=== PATIENT | female | born 1960 | race Caucasian/White ===

== ENCOUNTER 2017-03-03 18:58 | Emergency (ER) | payer OTHER ==
[2017-03-03 20:34] VITALS: BP 140/79
[2017-03-03] MEDS ORDERED: Sulfamethox/Trimethoprim DS 800/160* TAB PO ONE (21:18)
--- NOTE | 2017-03-03 21:18 | UC ---
Complaint Female HPI - HPI Summary HPI Summary: 3 DAYS OF DYSURIA, FREQUENCY AND URGENCY. NO FEVER, NAUSEA OR BACK PAIN. HAS BEEN TAKING AZO WITHOUT MUCH RELIEF - History Of Current Complaint Chief Complaint: UCGeneralIllness Stated Complaint: POSS UTI Time Seen by Provider: 03/03/17 21:08 Hx Obtained From: Patient Hx Last Menstrual Period: January 31 Onset/Duration: Gradual Onset, Lasting Days, Still Present Timing: Constant Severity Initially: Moderate Severity Currently: Moderate Pain Intensity: 3 Pain Scale Used: 0-10 Numeric Character: Burning Aggravating Factor(s): Urination Alleviating Factor(s): Nothing Associated Signs And Symptoms: Negative: Fever, Back Pain, Vaginal Bleeding/ Discharge, Nausea, Vomiting(# Of Episodes =), Genital Swelling, Genital Blisters - Allergies/Home Medications Allergies/Adverse Reactions: Allergies Allergy/AdvReac Type Severity Reaction Status Date / Time No Known Allergies Allergy Verified 03/18/13 16:29 Home Medications: Home Medications Progesterone CAP (NF) [Prometrium (NF)] 03/03/17 [History] Pumpkin Seed-Soy Germ [Azo Bladder Control/Go-Le] 03/03/17 [History] Testosterone (Bulk) [Testosterone] 03/03/17 [History] PMH/Surg Hx/FS Hx/Imm Hx Endocrine History Of: Reports: Diabetes - on metformin Denies: Thyroid Disease Cardiovascular History Of: Reports: Hypertension - on meds Denies: Cardiac Disorders Respiratory History Of: Denies: COPD, Asthma GI/ History Of: Denies: Ulcer - Surgical History Surgical History: Yes Surgery Procedure, Year, and Place: gallbadder 5 yrs ago, spleen repaired age 20 - Family History Known Family History: Positive: Cardiac Disease, Hypertension - Social History Alcohol Use: Weekly Substance Use Type: None Smoking Status (MU): Never Smoked Tobacco Review of Systems Constitutional: Negative Respiratory: Negative Cardiovascular: Negative Gastrointestinal: Abdominal Pain Genitourinary: Dysuria, Frequency, Urgency All Other Systems Reviewed And Are Negative: Yes Physical Exam Triage Information Reviewed: Yes Appearance: Well-Appearing, No Pain Distress, Well-Nourished Vital Signs: Initial Vital Signs Temp 98.6 F 03/03/17 20:25 Pulse 57 03/03/17 20:25 Resp 18 03/03/17 20:25 BP 140/79 03/03/17 20:25 Pulse Ox 93 03/03/17 20:25 Vital Signs Reviewed: Yes Eyes: Positive: Conjunctiva Clear ENT: Positive: Hearing grossly normal Neck: Positive: Supple Respiratory: Positive: No respiratory distress, No accessory muscle use Cardiovascular: Positive: Pulses Normal Abdomen Description: Positive: Soft, Other: - SUPRAPUBIC TENDERNESS. Negative: CVA Tenderness (R), CVA Tenderness (L), Distended, Guarding Musculoskeletal: Positive: No Edema Neurological: Positive: Alert Psychological: Positive: Age Appropriate Behavior Skin: Negative: rashes Complaint Female Dx - Course Course Of Treatment: PT URINATED JUST PRIOR TO BEING SEEN AND WAS UNABLE TO PROVIDE A SAMPLE. SENT HOME WITH URINE SPECIMEN CUP AND LAB REQUISITION. WILL TX EMPIRICALLY WITH BACTRIM. PT TO BRING IN A SAMPLE IF SX DO NOT RESOLVE. - Differential Dx/Diagnosis Provider Diagnoses: UTI Discharge - Discharge Plan Condition: Stable Disposition: HOME Prescriptions: Sulfamethox/Trimethoprim DS* [Bactrim DS 800/160 TAB*] 1 tab PO BID #9 tab Patient Education Materials: Urinary Tract Infection in Women (ED) Referrals: Lg GUTIERREZ,Radha Reyes [Medical Doctor] - If Needed Additional Instructions: URINE SAMPLE NOT OBTAINED TODAY. IF YOUR SYMPTOMS DO NOT IMPROVE WITH BACTRIM YOU WILL NEED TO SUBMIT A SAMPLE FOR TESTING. SPECIMEN CUP AND ORDER SENT HOME WITH YOU TODAY. STAY WELL HYDRATED.
== END 2017-03-03 21:31 | disposition home or self-care (01) ==
LOC: UCEAST 18:58
DX: N39.0 Urinary tract infection, site not specified (principal); E11.9 Type 2 diabetes mellitus without complications; I10 Essential (primary) hypertension; Z79.84 Long term (current) use of oral hypoglycemic drugs
CPT/HCPCS: 99212; A9270-GY; G0463

== ENCOUNTER 2017-06-20 17:16 | Emergency (ER) | payer OTHER ==
[2017-06-20 17:29] VITALS: BP 138/85
--- NOTE | 2017-06-20 17:32 | UC ---
Headache HPI - HPI Summary HPI Summary: 56 YEAR OLD FEMALE WITH A HISTORY OF MIGRAINE HEADACHES PRESENTS WITH INTRACTABLE HEADACHE AND FLOATERS. I WILL SEND HER TO THE ER SINCE THE HEADACHE IS NOT GOING AWAY AND SHE HAS VISUAL CHANGES. - History Of Current Complaint Chief Complaint: UCHeadache Stated Complaint: EYE COMPLAINT, HEADACHE Time Seen by Provider: 06/20/17 17:32 Hx Obtained From: Patient Hx Last Menstrual Period: January 31 Onset/Duration: Sudden Onset Initially Headache Was: "Worst Headache Ever" Pain Scale Used: 0-10 Numeric - 8 Timing: Constant Character: Sharp Location of Headache: Diffuse Allevating Factors: Nothing Associated Signs And Symptoms: Positive: Negative - Allergies/Home Medications Allergies/Adverse Reactions: Allergies Allergy/AdvReac Type Severity Reaction Status Date / Time No Known Allergies Allergy Verified 06/20/17 17:29 Home Medications: Home Medications Estradiol [Divigel] 0.5 mg TD 06/20/17 [History] PMH/Surg Hx/FS Hx/Imm Hx Previously Healthy: Yes - Surgical History Surgical History: Yes Surgery Procedure, Year, and Place: gallbadder 5 yrs ago, spleen repaired age 20 - Family History Known Family History: Positive: Cardiac Disease, Hypertension - Social History Alcohol Use: Weekly Substance Use Type: None Smoking Status (MU): Never Smoked Tobacco Review of Systems Constitutional: Negative Skin: Negative Eyes: Blurred Vision ENT: Negative Respiratory: Negative Cardiovascular: Negative Gastrointestinal: Negative Genitourinary: Negative Motor: Negative Neurovascular: Negative Musculoskeletal: Negative Neurological: Headache Psychological: Negative All Other Systems Reviewed And Are Negative: Yes Physical Exam Triage Information Reviewed: Yes Vital Signs: Initial Vital Signs Temp 36.3 C 06/20/17 17:25 Pulse 77 06/20/17 17:25 Resp 18 06/20/17 17:25 BP 138/85 06/20/17 17:25 Pulse Ox 98 06/20/17 17:25 Eye Exam: Normal ENT Exam: Normal Dental Exam: Normal Neck exam: Normal Neck: Positive: 1 Respiratory Exam: Normal Cardiovascular Exam: Normal Abdominal Exam: Normal Musculoskeletal Exam: Normal Neurological Exam: Normal Psychological Exam: Normal Skin Exam: Normal Headache Course/Dx - Differential Dx/Diagnosis Provider Diagnoses: HEADACHE. VISUAL FLOATERS RIGHT EYE Discharge - Discharge Plan Condition: Stable Disposition: HOME Referrals: Lg GUTIERREZ,Radha Reyes [Primary Care Provider] - Additional Instructions: PATIENT WITH HISTORY OF MIGRAINE SUGGESTED TO GO FOR INTRACTABLE HEADACHE AND ASSOCIATED FLOATERS.
== END 2017-06-20 17:41 | disposition home or self-care (01) ==
LOC: UCEAST 17:16
DX: R51 Headache (principal); H43.391 Other vitreous opacities, right eye; Z90.49 Acquired absence of other specified parts of digestive tract
CPT/HCPCS: 99212; G0463

== ENCOUNTER 2017-06-20 18:08 | Emergency (ER) | payer OTHER ==
[2017-06-20] MEDS ORDERED: Metoclopramide IV* 5 MG/ML 2 ML VIAL IV SLOW PU ONE (20:05)
[2017-06-20] MEDS ORDERED: diPHENhydraMINE IV* 50 MG/ML 1 ml VIAL (BENADRYL) SLOW PUSH ONE (20:05)
[2017-06-20 20:29] LABS: Hematocrit 40 % (35-47); Hemoglobin 13.4 g/dl (12.0-16.0); Mean Corpuscular HGB Conc 33 g/dl (31-36); Mean Corpuscular Hemoglobin 30 pg (27-31); Mean Corpuscular Volume 90 fL (80-97); Mean Platelet Volume 8 um3 (7.4-10.4); Red Blood Count 4.48 10^6/ul (4.0-5.4); Red Cell Distribution Width 13 % (10.5-15); White Blood Count 7.4 10^3/ul (3.5-10.8)
--- NOTE | 2017-06-20 20:32 | RAD ---
INDICATION: Headaches COMPARISON: None TECHNIQUE: Noncontrast axial source images were acquired from the skull base to the vertex. FINDINGS: Ventricles/sulci: The ventricles and cisterns are normal in size and configuration for age. Brain parenchyma: There is no focal parenchymal finding, evidence of intracranial mass, or intracranial mass effect. Intracranial hemorrhage:None. Extra-axial spaces: There are no abnormal extra axial fluid collections or evidence of extra-axial mass. Calvarium: There is no calvarial fracture or other calvarial abnormality. Scalp: There is no evidence of scalp or extracalvarial soft tissue abnormality. Paranasal sinuses/mastoid: The paranasal sinuses and mastoid air cells are clear. Other: None. IMPRESSION: NEGATIVE EXAMINATION
[2017-06-20 20:44] LABS: Albumin 4.3 g/dL (3.2-5.2); BUN/Creatinine Ratio 14.4 (8-20); Calcium 9.8 mg/dL (8.6-10.3); EGFR African American 83.6 (>60); Globulin 2.8 g/dL (2-4); Potassium 3.8 mmol/L (3.5-5.0); Total Bilirubin 0.8 mg/dL (0.2-1.0); Total Protein 7.1 g/dL (6.4-8.9)
[2017-06-20] MEDS ORDERED: Ketorolac INJ* 30 MG/ML 1 ML VIAL IV PUSH ONE (21:11)
[2017-06-20 21:52] VITALS: BP 130/83
--- NOTE | 2017-07-04 15:42 | ED ---
Virgil Johnson Kyle, scribed for Aditya Valdez MD on 06/20/17 at 2003 . Headache - HPI Summary HPI Summary: This is a 56 yo female presents to the ED w/ c/o Headache. She reports that she was initially seen at [facility] but was referred here after noting a significant headache two days ago which eventually resolved with Excedrin. Yesterday following cross fit around 1929, had a visual disturbance that has been intermittent since with a recurrent gradual onset headache. She describes the disturbance as a flashing light. She does not still see it when closing the right eye. The headache is currently a 6/10. No fevers, tingling, numbness or neck pain. She also reports a sore throat which is what originally took her to UrgentCare today. She does have some pain with swolling, but has been able to swallow. She has been utilizing the nakul pot at home with minimal relief. She has had her tonsils surgically removed. She reports that her last menses was about 9 months ago, but has had some spotting. She notes some sweats but believes this is hot flashes. - History Of Current Complaint Chief Complaint: EDHeadache Stated Complaint: SORE THROAT/SEVERE HEADACHE Time Seen by Provider: 06/20/17 19:38 Hx Obtained From: Patient Last Known Well Date: 192806/19/2017 Hx Last Menstrual Period: January 31 Onset/Duration: Gradual Onset Initially Headache Was: Severe Currently Pain Is: Current Pain Scale(0-10)= - 6 Timing: Intermittent, Lasting: Character: Throbbing Location of Headache: Diffuse Aggravating Factor: Nothing Allevating Factors: Other (Noted In Comments) - Excederin - Allergies/Home Medications Allergies/Adverse Reactions: Allergies Allergy/AdvReac Type Severity Reaction Status Date / Time No Known Allergies Allergy Verified 06/20/17 17:29 PMH/Surg Hx/FS Hx/Imm Hx Endocrine/Hematology History: Reports: Hx Diabetes - on metformin Denies: Hx Thyroid Disease Cardiovascular History: Denies: Hx Hypertension Respiratory History: Denies: Hx Asthma, Hx Chronic Obstructive Pulmonary Disease (COPD) GI History: Denies: Hx Ulcer - Surgical History Surgery Procedure, Year, and Place: gallbadder 5 yrs ago, spleen repaired age 20 Infectious Disease History: Denies: Hx Hepatitis, Hx Human Immunodeficiency Virus (HIV), Traveled Outside the [place] in Last 30 Days - Family History Known Family History: Positive: Cardiac Disease, Hypertension - Social History Alcohol Use: Weekly Substance Use Type: Reports: None Smoking Status (MU): Never Smoked Tobacco Review of Systems Positive: Skin Diaphoresis - "hot flashes". Negative: Fever, Chills Positive: Other - Flashing disturbance. Negative: Erythema Negative: Sore Throat Negative: Palpitations, Chest Pain Negative: Shortness Of Breath, Cough Negative: Abdominal Pain, Vomiting, Nausea Negative: dysuria, hematuria Negative: Myalgia, Edema Negative: Rash Neurological: Other - NEGATIVE: dizziness Positive: Headache. Negative: Weakness, Numbness All Other Systems Reviewed And Are Negative: Yes Physical Exam - Summary Physical Exam Summary: Constitutional: Well-developed, Well-nourished, Alert. (-) Distressed Skin: Warm, Dry HENT: Eyes: Conjunctiva normal Neck: Musculoskeletal ROM normal neck. (-) JVD, (-) Stridor, (-) Tracheal deviation Cardio: Rhythm regular, rate normal, Heart sounds normal; Intact distal pulses; The pedal pulses are 2+ and symmetric. Radial pulses are 2+ and symmetric. (-) Murmur Pulmonary/Chest wall: Effort normal. (-) Respiratory distress, (-) Wheezes, (-) Rales Abd: Soft. (-) Tenderness, (-) Distension, (-) Guarding, (-) Rebound Musculoskeletal: (-) Edema Lymph: (-) Cervical adenopathy Neuro: Alert, Oriented x3, Strength normal, Cranial nerves II-XII are grossly intact. (-) Dysmetria, (-) Nystagmus, (-) Ataxia by finger to nose testing, (-) Sensory deficit. Psych: Mood and affect Normal Triage Information Reviewed: Yes Vital Signs On Initial Exam: Initial Vitals Temp Pulse Resp BP Pulse Ox 97.9 F 59 16 140/82 100 06/20/17 18:52 06/20/17 18:52 06/20/17 18:52 06/20/17 18:52 06/20/17 18:52 Vital Signs Reviewed: Yes Diagnostics - Vital Signs Vital Signs Temp Pulse Resp BP Pulse Ox 06/20/17 18:52 97.9 F 59 16 140/82 100 - Laboratory Result Diagrams: 06/20/17 20:21 06/20/17 20:21 Lab Statement: Any lab studies that have been ordered have been reviewed, and results considered in the medical decision making process. - CT Brain CT Interpretation: No Acute Changes CT Interpretation Completed By: Radiologist Re-Evaluation - Re-Evaluation First Eval Re-Evaluation Time: 21:14 - MORATAYA resolved. Change: Improved Headache Course/Dx - Course Assessment/Plan: Pt with severe headache on Friday that resolved with Excedrin. She reports gradual onset headache today with visual disturbance. CT today was negative. She has no risk factors for acute CVA. Spoke with Dr. Batista of neurology regarding work up including negative CT and labs. He states he will see patient in the office in 2-3 days for follow up, stable for discharge. - Diagnoses Differential Diagnosis/HQI/PQRI: CVA, Migraine, Sinus Headache, Tension Headache , Viral Syndrome Provider Diagnoses: Ocular migraine - Physician Notifications Discussed Care Of Patient With: Donya Batista Time Discussed With Above Provider: 21:30 Instructed by Provider To: Have Pt Call For Appt. Discharge - Discharge Plan Condition: Stable Disposition: HOME Patient Education Materials: Ocular Migraine (ED) Referrals: Donya Batista MD [Medical Doctor] - Additional Instructions: Follow Up with Dr. Batista of Neurology in 2-3 days. The documentation as recorded by the Virgil delcid Kyle accurately reflects the service I personally performed and the decisions made by , Aditya Valdez MD.
== END 2017-06-20 21:56 | disposition home or self-care (01) ==
LOC: ED 18:08
DX: G43.819 Other migraine, intractable, without status migrainosus (principal); E11.8 Type 2 diabetes mellitus with unspecified complications; Z79.84 Long term (current) use of oral hypoglycemic drugs
CPT/HCPCS: 36415; 70450; 80053; 85027; 87651; 96374; 96375; 99283; J1200; J1885; J2765

== ENCOUNTER 2019-02-27 19:16 | Emergency (ER) | payer SELFPAY ==
[2019-02-27 19:33] VITALS: BP 156/83
--- NOTE | 2019-02-27 19:55 | UC ---
Complaint Female HPI - HPI Summary HPI Summary: This patient is a 58-year-old female who presents to the urgent care with chief complaint of having dysuria, urinary frequency, and urinary urgency. The patient is be have the symptoms since last night. Patient reports that she is feeling as when she usually has the urinary tract infections. She denies any lower abdominal pain, denies any fevers, denies any nausea, denies any vaginal discharge or bleeding. She has no other complaints. - History Of Current Complaint Chief Complaint: UCGeneralIllness Stated Complaint: BURNING URINATION Time Seen by Provider: 02/27/19 19:48 Hx Obtained From: Patient Hx Last Menstrual Period: January 31 Onset/Duration: Gradual Onset Timing: Constant Severity Initially: Mild Severity Currently: Moderate Pain Intensity: 5 - Allergies/Home Medications Allergies/Adverse Reactions: Allergies Allergy/AdvReac Type Severity Reaction Status Date / Time No Known Allergies Allergy Verified 02/27/19 19:33 PMH/Surg Hx/FS Hx/Imm Hx Previously Healthy: Yes - Surgical History Surgical History: Yes Surgery Procedure, Year, and Place: CHOLECYSTECTOMY - 2013. SPLEEN - REPAIRED AT AGE 20. TONSILECTOMY. Lt WRIST & Rt FOOT - GANGLION CYST REMOVED - Family History Known Family History: Positive: Cardiac Disease, Hypertension - Social History Alcohol Use: Weekly Substance Use Type: None Smoking Status (MU): Never Smoked Tobacco Review of Systems All Other Systems Reviewed And Are Negative: Yes Constitutional: Positive: Negative Skin: Positive: Negative Eyes: Positive: Negative ENT: Positive: Negative Respiratory: Positive: Negative Cardiovascular: Positive: Negative Gastrointestinal: Positive: Negative Genitourinary: Positive: Dysuria, Hematuria, Frequency, Urgency Motor: Positive: Negative Neurovascular: Positive: Negative Musculoskeletal: Positive: Negative Neurological: Positive: Negative Psychological: Positive: Negative Is Patient Immunocompromised?: No Physical Exam - Summary Physical Exam Summary: VITAL SIGNS: Reviewed. GENERAL: Patient is a well developed and nourished femle who is lying comfortable in the stretcher. Patient is not in any acute respiratory distress. HEAD AND FACE: No signs of trauma. No ecchymosis, hematomas or skull depressions. No sinus tenderness. EYES: PERRLA, EOMI x 2, No injected conjunctiva, no nystagmus. EARS: Hearing grossly intact. Ear canals and tympanic membranes are within normal limits. MOUTH: Oropharynx within normal limits. NECK: Supple, trachea is midline, no adenopathy, no JVD, no carotid bruit, no c- spine tenderness, neck with full ROM. CHEST: Symmetric, no tenderness at palpation LUNGS: Clear to auscultation bilaterally. No wheezing or crackles. CVS: Regular rate and rhythm, S1 and S2 present, no murmurs or gallops appreciated. ABDOMEN: Soft, non-tender. No signs of distention. No rebound no guarding, and no masses palpated. Bowel sounds are normal. EXTREMITIES: FROM in all major joints, no edema, no cyanosis or clubbing. NEURO: Alert and oriented x 3. No acute neurological deficits. Speech is normal and follows commands. SKIN: Dry and warm Triage Information Reviewed: Yes Vital Signs: Initial Vital Signs Temp 99.9 F 02/27/19 19:27 Pulse 72 02/27/19 19:27 Resp 18 02/27/19 19:27 BP 156/83 02/27/19 19:27 Pulse Ox 99 02/27/19 19:27 Complaint Female Dx - Course Course Of Treatment: Urinalysis positive for UTI. The patient was placed in ciprofloxacin. Patient reports that this antibiotic was well for her UTIs. Patient will follow-up with primary care physician. Patient is hemodynamically stable. - Differential Dx/Diagnosis Provider Diagnosis: UTI (urinary tract infection) Discharge - Sign-Out/Discharge Documenting (check all that apply): Patient Departure All imaging exams completed and their final reports reviewed: No Studies - Discharge Plan Condition: Stable Disposition: HOME Prescriptions: Ciprofloxacin TAB* [Cipro 500 MG TAB*] 500 mg PO BID #6 tab Patient Education Materials: Urinary Tract Infection in Women (ED) Referrals: Lg GUTIERREZ,Radha Reyes [Primary Care Provider] - Additional Instructions: Take medications as instructed Increase your fluid intake Return to the if symptoms worsen - Billing Disposition and Condition Condition: STABLE Disposition: Home
[2019-02-27] MEDS ORDERED: Ciprofloxacin TAB* 250 MG PO ONE (20:06)
--- NOTE | 2019-03-01 15:59 | UC ---
- Progress Note Progress Note: call patient assure patients uti sx fhave resolved if not please ask patient to seek follow up care as urine culture is negative Course/Dx - Diagnoses Provider Diagnoses: UTI (urinary tract infection) Discharge - Sign-Out/Discharge Documenting (check all that apply): Post-Discharge Follow Up All imaging exams completed and their final reports reviewed: No Studies - Discharge Plan Condition: Stable Disposition: HOME Prescriptions: Ciprofloxacin TAB* [Cipro 500 MG TAB*] 500 mg PO BID #6 tab Patient Education Materials: Urinary Tract Infection in Women (ED) Referrals: Lg GUTIERREZ,Radha Reyes [Primary Care Provider] - Additional Instructions: Take medications as instructed Increase your fluid intake Return to the UC if symptoms worsen - Billing Disposition and Condition Condition: STABLE Disposition: Home
== END 2019-02-27 20:20 | disposition home or self-care (01) ==
LOC: UCEAST 19:16
DX: N39.0 Urinary tract infection, site not specified (principal); R31.9 Hematuria, unspecified
CPT/HCPCS: 81003; 87086; 99212; A9270-GY; G0463

== ENCOUNTER 2019-10-15 19:19 | Emergency (ER) | payer OTHER ==
[2019-10-15 19:28] VITALS: BP 129/74
--- NOTE | 2019-10-15 19:32 | UC ---
Throat Pain/Nasal Ashwin HPI - HPI Summary HPI Summary: 58-year-old female presenting with sore throat 1 week. Denies other URI symptoms. Denies cough. Patient states sore throat was improving for the past 2 days but again has worsened today. States she is taking supplements without relief. Denies taking any [id number] pain medications. 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 Denies fever and chills. Denies nausea and vomiting. - History of Current Complaint Chief Complaint: UCRespiratory Stated Complaint: SORE THROAT Hx Obtained From: Patient Hx Last Menstrual Period: January 31 Pain Intensity: 3 Pain Scale Used: 0-10 Numeric - Allergies/Home Medications Allergies/Adverse Reactions: Allergies Allergy/AdvReac Type Severity Reaction Status Date / Time No Known Allergies Allergy Verified 10/15/19 19:28 Home Medications: Home Medications Magnesium Oxide [Magnesium] 500 mg PO DAILY 10/15/19 [History Confirmed 10/15/19 ] PMH/Surg Hx/FS Hx/Imm Hx Previously Healthy: Yes - Surgical History Surgical History: Yes Surgery Procedure, Year, and Place: CHOLECYSTECTOMY - 2012. SPLEEN - REPAIRED AT AGE 20. TONSILECTOMY. Lt WRIST & Rt FOOT - GANGLION CYST REMOVED - Family History Known Family History: Positive: Cardiac Disease, Hypertension - Social History Alcohol Use: Weekly Substance Use Type: None Smoking Status (MU): Never Smoked Tobacco Review of Systems All Other Systems Reviewed And Are Negative: Yes Constitutional: Positive: Negative. Negative: Fever, Chills ENT: Positive: Sore Throat. Negative: Sinus Congestion Respiratory: Positive: Negative Cardiovascular: Positive: Negative Gastrointestinal: Positive: Negative Musculoskeletal: Negative: Myalgia Neurological: Negative: Headache Physical Exam Triage Information Reviewed: Yes Appearance: Well-Appearing, No Pain Distress, Well-Nourished Vital Signs: Initial Vital Signs Temp 98.4 F 10/15/19 19:22 Pulse 57 10/15/19 19:22 Resp 18 10/15/19 19:22 BP 129/74 10/15/19 19:22 Pulse Ox 98 10/15/19 19:22 Lab Results 10/15/19 Range/Units 19:39 Group A Strep Rapid Negative (Negative) Vital Signs Reviewed: Yes Eyes: Positive: Conjunctiva Clear ENT: Positive: Hearing grossly normal, Pharyngeal erythema, TMs normal, Uvula midline. Negative: Nasal congestion, Tonsillar swelling, Tonsillar exudate, Trismus, Muffled voice, Hoarse voice Neck exam: Normal Neck: Positive: Supple, Nontender, No Lymphadenopathy Respiratory Exam: Normal Respiratory: Positive: Lungs clear, Normal breath sounds, No respiratory distress Cardiovascular Exam: Normal Cardiovascular: Positive: RRR Neurological: Positive: Alert Psychological: Positive: Age Appropriate Behavior Skin Exam: Normal Throat Pain/Nasal Course/Dx - Course Course Of Treatment: Negative rapid strep. Discussed likely viral etiology with patient and instructed to continue with symptomatic treatment. Instructed to follow up with pcp if symptoms persist or worsen. Patient voiced understanding and agreed with treatment plan. - Differential Dx/Diagnosis Differential Diagnosis/HQI/PQRI: URI Provider Diagnosis: Pharyngitis Discharge ED - Sign-Out/Discharge Documenting (check all that apply): Patient Departure All imaging exams completed and their final reports reviewed: No Studies - Discharge Plan Condition: Stable Disposition: HOME Patient Education Materials: Pharyngitis (ED) Referrals: Lg GUTIERREZ,Radha Reyes [Primary Care Provider] - If Needed Additional Instructions: As discussed, you tested negative for strep throat today. Your symptoms are likely caused by a virus and should resolve without treatment. You may take ibuprofen and/or tylenol as directed for pain relief. You may use over the counter throat sprays, lozenges, tea with honey, and salt water gargles for symptomatic relief. Get plenty of rest and fluids. Return or follow up with your primary care provider if your symptoms worsen or do not resolve within 7 days. - Billing Disposition and Condition Condition: STABLE Disposition: Home
== END 2019-10-15 20:04 | disposition home or self-care (01) ==
LOC: UCEAST 19:19
DX: J02.9 Acute pharyngitis, unspecified (principal)
CPT/HCPCS: 87651; 99211; G0463